=== PATIENT | female | born 1995 | race Caucasian/White ===

== ENCOUNTER 2017-01-08 08:22 | Emergency (ER) | payer OTHER ==
[~2017-01-08] VITALS: Ht 170.2 cm; Wt 57.8 kg
[2017-01-08 08:24] VITALS: BP 116/68
[2017-01-08] MEDS ORDERED: PEN-VEE K,VEET500 MG PO (08:42)
[2017-01-08] MEDS ORDERED: MOTRIN800 MG PO (08:42)
== END 2017-01-08 08:54 | disposition home or self-care (01) ==
LOC: EME 08:22
DX: K08.89 Other specified disorders of teeth and supporting structures (principal)
CPT/HCPCS: 99281; 99284

== ENCOUNTER 2017-04-25 15:50 | Emergency (ER) | payer OTHER ==
[~2017-04-25] VITALS: Ht 167.6 cm; Wt 58.6 kg
[~2017-04-25 15:50] MED LIST: MOTRIN800 MG PO; PEN-VEE K,VEET500 MG PO
[2017-04-25 17:49] LABS: HEMATOCRIT 37.7 % (36.0-46.0); MCH 31.1 PG (29.0-34.0); MCV 91.5 FL (83-99); PLATELET COUNT 203 K/uL (156-360); RBC DIS.WIDTH-CV 12.6 % (11.8-14.6); RBC DIS.WIDTH-SD 42.5 % (39-53); RED BLOOD COUNT 4.12 M/uL (3.80-5.20); WHITE BLOOD COUNT 8.7 K/uL (4.1-10.2)
[2017-04-25 18:00] LABS: CHLORIDE 107 mEq/L (99-109); POTASSIUM 4.1 mEq/L (3.7-5.4); SODIUM 140 mEq/L (136-147)
[2017-04-25 18:00] LABS: ADD MIUA? YES; BILIRUBIN NEGATIVE; BLOOD SMALL; COLOR YELLOW ((YELLOW)); GLUCOSE (STRIP) NEGATIVE; KETONES NEGATIVE; LEUKOCYTES NEGATIVE; NITRITE NEGATIVE; PROTEIN (STRIP) NEGATIVE; SPECIFIC GRAVITY 1.017 (1.000-1.030); UROBILINOGEN 0.2 MG/DL (0.2-1.0)
[2017-04-25 18:02] LABS: GLUCOSE 102 mg/dL (70-99)
[2017-04-25 18:04] LABS: ANION GAP 7 MEQ/L (2-14); TOTAL BILIRUBIN 0.2 mg/dL (0.0-1.0)
[2017-04-25 18:06] LABS: ALKALINE PHOSPHATASE 50 IU/L (3-129); GFR ESTIMATE (CALCULATED) > 59 mL/min/
[2017-04-25 18:07] LABS: UREA NITROGEN (BUN) 13 mg/dL (9-23)
[2017-04-25 18:08] LABS: QUANTITATIVE HCG < 4.0 MIU/ML
[2017-04-25 18:18] LABS: BACTERIA NONE SEEN /HPF; EPITHELIAL CELLS RARE /HPF; MUCUS TRACE /LPF; RED BLOOD CELLS 0-5 /HPF (0-5); UCUL ADDED? NO; WHITE BLOOD CELLS 0-5 /HPF (0-5)
[2017-04-25] MEDS ORDERED: FIORICET 50-301 EAC1 PO (20:20)
[2017-04-25 20:55] VITALS: BP 156/53
== END 2017-04-25 20:56 | disposition home or self-care (01) ==
LOC: RME 15:50 → EME 15:50 → RME 20:56
PROVIDERS: Physician Assistant
DX: R51 Headache (principal); N92.0 Excessive and frequent menstruation with regular cycle; Z87.442 Personal history of urinary calculi; F17.200 Nicotine dependence, unspecified, uncomplicated
CPT/HCPCS: 70450; 76856; 80053; 81003; 84702; 85027; 99281; 99284; J1885